=== PATIENT | female | born 1990 | race Hispanic/Latino ===

== ENCOUNTER 2021-07-15 21:21 | Inpatient (IN) | payer OTHER ==
[~2021-07-15 21:21] MED LIST: Bupivacaine 0.25% HCL 30 ML VIAL ONE; Lidocaine 2% MPF 10 ML AMP (For Epidural Use) ONE
[2021-07-15 21:51] VITALS: BMI 37.8
[2021-07-15] MEDS ORDERED: hydrALAZINE 20 MG/ML VIAL SLOW IVP PRN ×2 (22:15→23:15)
[2021-07-15 22:43] LABS: Fetal Membranes Rupture RUPTURE DETECTED (No Rupture)
[2021-07-15] MEDS ORDERED: Penicillin G Potassium 5 MILL.UNITS VIAL ONE (23:06)
[2021-07-15] MEDS ORDERED: NS w/ Oxytocin 30 units 500 ML IV SCH ×2 (23:15)
[2021-07-15] MEDS ORDERED: Promethazine HCl 25 MG/ML VIAL IM PRN (23:15)
[2021-07-15] MEDS ORDERED: Lidocaine 1% (PF) 30 ML VIAL SC PRN (23:15)
[2021-07-15] MEDS ORDERED: Penicillin G Potassium 5 MILL.UNITS in Sodium Chloride 0.9% 100 ML IVPB SCH (23:15)
[2021-07-15] MEDS ORDERED: Diphenoxylate HCl/Atropine Tablet PO PRN (23:15)
[2021-07-15] MEDS ORDERED: NS w/ Oxytocin 30 units 500 ML IVPB SCH (23:15)
[2021-07-15] MEDS ORDERED: Carboprost 250 MCG/ML AMP IM PRN (23:15)
[2021-07-15] MEDS ORDERED: Ondansetron PF 4 MG/2 ML Vial IVP PRN (23:15)
[2021-07-15] MEDS ORDERED: Acetaminophen 500 MG TAB PO PRN (23:15)
[2021-07-15] MEDS ORDERED: Misoprostol 200 MCG TAB RC PRN (23:15)
[2021-07-15] MEDS ORDERED: Ibuprofen 800 MG TAB PO PRN (23:15)
[2021-07-15] MEDS: Lactated Ringer's 1,000 ML IV SCH (23:32)
[2021-07-16 00:06] LABS: Hemoglobin 11.4 g/dL (12.0-15.5); Mean Corpuscular HGB CONC 32.9 g/dL (32.0-36.0); Mean Corpuscular Hemoglobin 28.4 pg (27.0-33.0); Mean Corpuscular Volume 86.5 fl (81.6-98.3); Platelet Count 218 10x3/uL (150-450); RBC Distribution Width 15.6 % (11.5-14.5); Red Blood Cell (RBC) Count 4.01 10x6/uL (3.90-5.03); White Blood Cell (WBC) Count 12.4 10x3/uL (3.5-10.5)
[2021-07-16 00:45] LABS: Hep B Surf Ag Non-Reactive S/CO (NonReactive)
[2021-07-16 00:47] LABS: Syphilis Antibody Nonreactive (Nonreactive); Syphilis Antibody Index 0.03 S/CO (<1.00 Non-Reactive)
[2021-07-16 01:04] LABS: HBSAg Index 0.23 S/CO (0-0.99)
[2021-07-16 01:32] LABS: SARS-CoV-2 NAA Rapid Test Not Detected (NotDetected)
[2021-07-16] MEDS: Penicillin G 2.5 MILL.units 50 ML IVPB SCH ×5 (03:23→19:15)
[2021-07-16] MEDS: Butorphanol Tartrate 1 MG/ML VIAL SLOW IVP PRN ×3 (15:09→20:30)
[2021-07-17] MEDS: Penicillin G 2.5 MILL.units 50 ML IVPB SCH (00:14)
[2021-07-17] MEDS ORDERED: Fentanyl 2 mcg/Bup 0.1% Cadd 100 ML ONE (00:50)
[2021-07-17] MEDS ORDERED: Azithromycin 500 MG VIAL ONE (02:35)
[2021-07-17] MEDS ORDERED: Dexamethasone 4 mg/ml Vial ONE (03:10)
[2021-07-17] MEDS ORDERED: Morphine PF 10 MG/10 ML VIAL ONE (03:10)
[2021-07-17] MEDS ORDERED: Ondansetron PF 4 MG/2 ML Vial ONE (03:10)
[2021-07-17] MEDS ORDERED: Oxytocin 10 UNITS/ML VIAL ONE (03:10)
[2021-07-17] MEDS ORDERED: Azithromycin 500 MG in Sodium Chloride 0.9% 250 ML 250 ML IVPB SCH (03:30)
[2021-07-17] MEDS ORDERED: CEFAZOLIN 2 GM in Premix Bag 1 BAG IVPB SCH (03:30)
[2021-07-17] MEDS ORDERED: HYDROcodone/Acetaminophen 5/325 mg Tablet PO PRN ×2 (09:27)
[2021-07-17] MEDS ORDERED: Ondansetron PF 4 MG/2 ML Vial IVP PRN (09:27)
[2021-07-17] MEDS ORDERED: Methylergonovine 0.2 MG/ML VIAL IM PRN (09:27)
[2021-07-17] MEDS ORDERED: NS w/ Oxytocin 30 units 500 ML IV SCH (09:27)
[2021-07-17] MEDS ORDERED: Misoprostol 200 MCG TAB PR PRN (09:27)
[2021-07-17] MEDS ORDERED: hydrALAZINE 20 MG/ML VIAL SLOW IVP PRN (09:27)
[2021-07-17] MEDS ORDERED: Simethicone Chewable 80 MG TAB PO PRN (09:27)
[2021-07-17] MEDS ORDERED: Ferrous Sulfate 325 MG TAB PO SCH (10:00)
[2021-07-17] MEDS ORDERED: Prenatal Vitamin 1 TAB PO SCH (10:00)
[2021-07-17] MEDS: Lactated Ringer's 1,000 ML IV SCH ×2 (10:55→23:00)
[2021-07-17] MEDS: Ibuprofen 800 MG TAB PO SCH ×2 (14:09→23:10)
[2021-07-17] MEDS: Ferrous Sulfate 325 MG TAB PO SCH (20:02)
[2021-07-18 05:39] LABS: #Monocytes 1.1 10x3/uL (0.0-1.1); %Basophils 0.3 % (0.0-2.0); %Eosinophils 0.2 % (0.0-6.0); %Lymphocytes 12.6 % (18.0-47.0); %Monocytes 7.2 % (0.0-10.0); %Neutrophils 78.7 % (40.0-75.0); Hemoglobin 10.1 g/dL (12.0-15.5); Mean Corpuscular HGB CONC 32.3 g/dL (32.0-36.0); Mean Corpuscular Hemoglobin 28.1 pg (27.0-33.0); Mean Corpuscular Volume 87.2 fl (81.6-98.3); Mean Platelet Volume 12.6 fl (7.4-10.4); Platelet Count 209 10x3/uL (150-450); Red Blood Cell (RBC) Count 3.59 10x6/uL (3.90-5.03); White Blood Cell (WBC) Count 15.3 10x3/uL (3.5-10.5)
[2021-07-18] MEDS: Ibuprofen 800 MG TAB PO SCH ×3 (05:44→22:37)
[2021-07-18] MEDS: Ferrous Sulfate 325 MG TAB PO SCH ×2 (07:40→22:38)
[2021-07-18] MEDS: Lactated Ringer's 1,000 ML IV SCH ×3 (07:48→08:42)
[2021-07-18] MEDS: Penicillin G 2.5 MILL.units 50 ML IVPB SCH (07:48)
[2021-07-18] MEDS: Docusate Calcium (SURFAK) 240 MG CAP PO SCH ×2 (08:53→22:38)
[2021-07-18] MEDS: Prenatal Vitamin 1 TAB PO SCH (08:53)
[2021-07-18] MEDS ORDERED: Boostrix 0.5 ML (Tdap) VIAL IM ONE (09:27)
[2021-07-19] MEDS: Lactated Ringer's 1,000 ML IV SCH (02:42)
[2021-07-19] MEDS: Ibuprofen 800 MG TAB PO SCH ×2 (06:50→14:38)
[2021-07-19 07:57] VITALS: BP 127/60; TEMP 99.3
[2021-07-19] MEDS: Docusate Calcium (SURFAK) 240 MG CAP PO SCH (09:12)
[2021-07-19] MEDS: Ferrous Sulfate 325 MG TAB PO SCH (09:12)
[2021-07-19] MEDS: Prenatal Vitamin 1 TAB PO SCH (09:13)
== END 2021-07-19 14:57 | disposition home or self-care (01) | DRG 788 ==
LOC: CSHLD/OP 21:21 → CSHLD 23:13 → CSHPED 07-17 09:26
PROVIDERS: ADMIT Student in an Organized Health Care Education/Training Program; ATTEND Student in an Organized Health Care Education/Training Program
PROC: 10D00Z1 Extraction of Products of Conception, Low, Open Approach (ICD-10-PCS; principal; 2021-07-17)
DX: O76 Abnormality in fetal heart rate and rhythm complicating labor and delivery (principal); Z20.822 Contact with and (suspected) exposure to COVID-19; O48.0 Post-term pregnancy; Z3A.40 40 weeks gestation of pregnancy; O69.81X0 Labor and delivery complicated by cord around neck, without compression, not applicable or unspecified; O64.0XX0 Obstructed labor due to incomplete rotation of fetal head, not applicable or unspecified; Z37.0 Single live birth
CPT/HCPCS: 36415; 51702; 72170; 84112; 85025; 85027; 86780; 86850; 86900; 86901; 87340; 99285; J0595; J1100; J2274; J2405; J2540; J2590; J3490; J7120; S0020; U0002